=== PATIENT | male | born 1975 | race Caucasian/White ===

== ENCOUNTER → 2021-07-28 02:43 | Outpatient (CLI) | payer BC, SELFPAY ==
[2021-07-28 20:49] LABS: SARS-CoV-2 RNA PCR Positive
== END ==
PROVIDERS: PCP Family Medicine; Visit Provider Family Medicine
DX: U07.1 COVID-19 (principal)
CPT/HCPCS: C9803; U0003; U0005

== ENCOUNTER → 2022-08-05 10:17 | Outpatient (CLI) | payer OTHER, SELFPAY ==
--- NOTE | ~2022-08-05 | XR_ITS ---
EXAMINATION: XR chest 2V DATE: 08/05/2022 10:38 INDICATION: Shortness of breath. Chest pain. TECHNIQUE: Frontal and lateral views of the chest were obtained on 3 radiographs. COMPARISON: None. FINDINGS: The chest demonstrates clear lungs without pneumonia, pleural effusion, or pneumothorax. Th e heart size is normal. IMPRESSION: 1. No acute cardiopulmonary disease. Reviewed, dictated and finalized at location A. [employer]
== END ==
PROVIDERS: PCP Physician Assistant; Visit Provider Physician Assistant
DX: R06.02 Shortness of breath (principal); R07.9 Chest pain, unspecified
CPT/HCPCS: 71046

== ENCOUNTER 2022-08-26 10:28 | Outpatient (CLI) | payer OTHER, SELFPAY ==
--- NOTE | 2022-08-26 11:08 | EST_ITS ---
Patient Info Name: Cl Rucker Age: 46 years : 1975 Gender: Male Ht: 69 in Wt: 230 lbs BSA: 2.29 m2 HR: 70 bpm BP: 147 / 109 mmHg Heart Rhythm: Sinus Rhythm Exam Date: 08/26/2022 11:21 AM Exam Location: [facility] Stress Patient Status: Outpatient Admit Date: 08/26/2022 Staff Ordering Physician: Kari Benavides PA-C Attending Provider: Kari Benavides PA-C Exercise Technologist: Jaqueline Serrato CT Exercise Physician: Aristides Lindo DO Exam Type: CA stress test treadmill Study Info Indications R07.9 - Chest pain, unspecified A treadmill exercise stress test was performed. Summary 1. 1. Negative Roger exercise stress test for ischemic ST changes by ECG criteria. 2. 2. Good functional capacity, achieving 11 METs of workload. 3. 3. Baseline hypertension. 4. 4. Appropriate HR response to exercise. 5. 5. Appropriate HR recovery at 1 minute post exercise. 6. 6. No imaging with stress testing. 7. 7. Patient informed of the above results. Protocol: Roger Stress ECG Details Stage: REST Duration (min): 2 min : 0 sec Speed (mph): 0.0 Grade (%): 0 HR (bpm): 69 SBP (mmHg): 147 DBP (mmHg): 107 METS: --- Stage: REST Duration (min): 4 min : 25 sec Speed (mph): 0.0 Grade (%): 0 HR (bpm): 79 SBP (mmHg): 145 DBP (mmHg): 105 METS: --- Stage: STAGE 1 Duration (min): 1 min : 0 sec Speed (mph): 1.7 Grade (%): 10 HR (bpm): 101 SBP (mmHg): 145 DBP (mmHg): 105 METS: --- Stage: STAGE 1 Duration (min): 2 min : 0 sec Speed (mph): 1.7 Grade (%): 10 HR (bpm): 112 SBP (mmHg): 145 DBP (mmHg): 105 METS: --- Stage: STAGE 1 Duration (min): 3 min : 0 sec Speed (mph): 1.7 Grade (%): 10 HR (bpm): 114 SBP (mmHg): 180 DBP (mmHg): 90 METS: --- Stage: STAGE 2 Duration (min): 1 min : 0 sec Speed (mph): 2.5 Grade (%): 12 HR (bpm): 124 SBP (mmHg): 180 DBP (mmHg): 90 METS: --- Stage: STAGE 2 Duration (min): 2 min : 0 sec Speed (mph): 2.5 Grade (%): 12 HR (bpm): 130 SBP (mmHg): 172 DBP (mmHg): 89 METS: --- Stage: STAGE 2 Duration (min): 3 min : 0 sec Speed (mph): 2.5 Grade (%): 12 HR (bpm): 132 SBP (mmHg): 172 DBP (mmHg): 89 METS: --- Stage: STAGE 3 Duration (min): 1 min : 0 sec Speed (mph): 3.4 Grade (%): 14 HR (bpm): 143 SBP (mmHg): 183 DBP (mmHg): 91 METS: --- Stage: STAGE 3 Duration (min): 2 min : 0 sec Speed (mph): 3.4 Grade (%): 14 HR (bpm): 147 SBP (mmHg): 183 DBP (mmHg): 91 METS: --- Stage: STAGE 3 Duration (min): 3 min : 0 sec Speed (mph): 3.4 Grade (%): 14 HR (bpm): 148 SBP (mmHg): 179 DBP (mmHg): 91 METS: --- Stage: STAGE 4 Duration (min): 0 min : 30 sec Speed (mph): 4.2 Grade (%): 16 HR (bpm): 155 SBP (mmHg): 179 DBP (mmHg): 91
== END 2022-08-26 10:29 | disposition home or self-care (01) ==
LOC: ANHCARD 10:28
PROVIDERS: PCP Family Medicine; Visit Provider Physician Assistant
DX: R07.89 Other chest pain (principal); R06.09 Other forms of dyspnea
CPT/HCPCS: 93017

== ENCOUNTER → 2022-09-02 08:48 | Outpatient (CLI) | payer OTHER, SELFPAY ==
--- NOTE | ~2022-09-02 | US_ITS ---
EXAMINATION: US abdomen limited DATE: 09/02/2022 09:05 INDICATION: Abnormal liver function tests TECHNIQUE: Multiple grayscale and Doppler ultrasound images of the abdomen were obtained. COMPARISON: None available FINDINGS: Bowel gas obscures visualization of the pancreas. The visualized portions of the pancreas a re unremarkable. The liver demonstrates increased echogenicity, heterogenous echotexture, and decreas ed through transmission. No surface nodularity. Normal hepatopetal flow in the main portal vein. The gallbladder is normal with no abnormal wall thickening, pericholecystic fluid or stones. The normal c ommon bile duct measures 3 mm. There was no sonographic Linares sign. IMPRESSION: 1. Diffuse hepatic steatosis. Reviewed, dictated and finalized at location B. ANICAL INSPECTOR
== END ==
PROVIDERS: PCP Family Medicine; Visit Provider Family Medicine
DX: R94.5 Abnormal results of liver function studies (principal); K76.0 Fatty (change of) liver, not elsewhere classified
CPT/HCPCS: 76705

== ENCOUNTER 2022-09-02 09:01 | Outpatient (CLI) | payer OTHER, SELFPAY ==
[2022-09-02 19:47] LABS: Basophils Absolute Auto 0.1 K/mm3 (0.0-0.1); Basophils Percent Auto 1.2 % (0.2-1.2); Eosinophils Absolute Auto 0.1 K/mm3 (0-0.3); Eosinophils Percent Auto 3.4 % (0-4.4); Hematocrit 42.6 % (42.0-52.0); Hemoglobin 14.8 g/dL (14.0-18.0); Immature Platelet Fraction Pct 9.9 % (0.9-11.2); Lymphocytes Absolute Auto 1.56 K/mm3 (0.9-3.2); Lymphocytes Percent Auto 37.9 % (18.3-44.2); Mean Corpuscular HGB Conc 34.7 g/dl (32-36); Mean Corpuscular Hemoglobin 31.4 pg (26-34); Mean Corpuscular Volume 90.3 fl (80-100); Mean Platelet Volume 13.2 fl (7.4-10.4); Monocytes Absolute Auto 0.4 K/mm3 (0.1-0.6); Monocytes Percent Auto 8.5 % (2.6-8.5); Platelet Count Result 137 k/mm3 (150-375); Red Blood Count 4.72 M/mm3 (4.6-6.20); Red Cell Distribution Width 11.7 % (11.5-14.5); White Blood Count 4.1 K/mm3 (4.5-10.0)
[2022-09-02 19:49] LABS: Alanine Aminotransferase 72 U/L (6-50); Albumin Level 4.8 g/dL (3.5-5.1); Alkaline Phosphatase 36 U/L (38-126); Aspartate Amino Transferase 38 U/L (17-59)
[2022-09-02 20:07] LABS: Hemoglobin A1C 4.7 % (<5.7)
[2022-09-02 20:19] LABS: Hepatitis B Surface Antigen Negative (Negative)
[2022-09-02 20:25] LABS: HAV RESULT Negative (Negative); Hepatitis B Core IgM Result Negative (Negative)
[2022-09-02 20:37] LABS: Hepatitis C Virus Antibody Negative (Negative)
== END 2022-09-02 09:02 | disposition home or self-care (01) ==
LOC: ANHGOSHLAB 09:03
PROVIDERS: PCP Family Medicine; Visit Provider Family Medicine
DX: R94.5 Abnormal results of liver function studies (principal); D69.6 Thrombocytopenia, unspecified; R73.01 Impaired fasting glucose
CPT/HCPCS: 36415; 80074; 80076; 82607; 82728; 83036; 85025; 85055